=== PATIENT | female | born 1970 | race Caucasian/White ===

== ENCOUNTER 2017-02-24 09:13 | Day surgery (SDC) | payer OTHER ==
[2017-02-24] MEDS ORDERED: ceFAZolin 2 GM/DEXTROSE 100 ML IV ONE (09:33)
[2017-02-24] MEDS ORDERED: LIDOCAINE 1% 2 ML INJ ID PRN (09:42)
[2017-02-24] MEDS ORDERED: LR 1,000 ML IV SCH (10:00)
[2017-02-24] MEDS ORDERED: THROMBIN (BOVINE) 20,000 UNIT SPRAY TP ONE (10:11)
[2017-02-24] MEDS ORDERED: LIDOCAINE 1% 300 MG/30 ML SDV ONE (10:11)
[2017-02-24] MEDS ORDERED: BUPIVACAINE 0.5% 30 ML SDV ONE (10:11)
[2017-02-24] MEDS ORDERED: MINERAL OIL 10 ML VIAL ONE (10:11)
--- NOTE | 2017-02-24 10:14 | PDHPUP ---
History & Physical Update H&P update statement: This history and physical update is based on an assessment of the patient which was completed after admission or registration (within 24 hours), but prior to the surgery/procedure. H&P update: H&P reviewed & patient examined, no change in patient's condition since H&P completed
[2017-02-24] MEDS ORDERED: SCOPOLAMINE HYDROBROMIDE 1 MG/3 DAYS PATCH TD SCH (10:15)
[2017-02-24] MEDS ORDERED: MIDAZOLAM 2 MG/2 ML VIAL IVP ONE (10:15)
--- NOTE | 2017-02-24 10:15 | PDANEPAE ---
ANE History of Present Illness 46 year old female presents for debridement and split thickness skin grafting with possible wound vac placement to right ankle. ANE Past Medical History - Cardiovascular History Hx Hypertension: No Hx Arrhythmias: No Hx Chest Pain: No Hx Coronary Artery / Peripheral Vascular Disease: No Hx CHF / Valvular Disease: No Hx Palpitations: No - Pulmonary History Hx COPD: No Hx Asthma/Reactive Airway Disease: No Hx Recent Upper Respiratory Infection: No Hx Oxygen in Use at Home: No Hx Sleep Apnea: No Sleep Apnea Screening Result - Last Documented: Negative - Neurologic History Hx Cerebrovascular Accident: No Hx Seizures: No Hx Dementia: No - Endocrine History Hx Diabetes: No Hypothyroid: No Hyperthyroid: No Obesity: no - Renal History Hx Renal Disorders: No - Liver History Hx Hepatic Disorders: No - Neurological & Psychiatric Hx Hx Neurological and Psychiatric Disorders: No - Cancer History Hx Cancer: No - Congenital Disorder History Hx Congenital Disorders: No - GI History GERD: no Hx Gastrointestinal Disorders: No - Other Health History Other Health History: NONE - Chronic Pain History Chronic Pain: No - Surgical History Prior Surgeries: JUL 2016 ANKLE FX. ESCAR DEBRIDMENT, BLADDER SLING ANE Review of Systems Review of Systems: - Exercise capacity Exercise capacity: >=4 METS METS (RN): 6 METS ANE Patient History - Allergies Allergies/Adverse Reactions: morphine Allergy (Mild, Verified 02/20/17 17:51) Itching - Home Medications Home medications: home medication list seen and reviewed Home Medications: Keflex 02/20/17 [Last Taken Unknown] - NPO status NPO Status: no food or drink >8 hours NPO Since - Liquids (Date): 02/24/17 NPO Since - Liquids (Time): 07:45 NPO Since - Solids (Date): 02/23/17 NPO Since - Solids (Time): 22:30 - Anes Hx Anes Hx: post operative nausea and vomiting - Smoking Hx Smoking Status: Never smoked Marijuana use: No - Alcohol Use Alcohol Use: Rarely - Family Anes Hx Family Anes Hx: neg - N/A Family Hx Anesthesia Complications: NAUSEA ANE Labs/Vital Signs - Vital Signs Vital Signs: reviewed preoperatively; see RN documention for details Blood Pressure: 124/64 Heart Rate: 53 Respiratory Rate: 16 O2 Sat (%): 98 Height: 172.72 cm Weight: 70.307 kg ANE Physical Exam - Airway Neck exam: FROM Mallampati Score: Class 1 Mouth exam: normal dental/mouth exam - Pulmonary Pulmonary: no respiratory distress - Cardiovascular Cardiovascular: regular rate and rhythym - ASA Status ASA Status: I ANE Anesthesia Plan Anesthesia Plan: general endotracheal anesthesia Total IV Anesthesia: No
[2017-02-24] MEDS ORDERED: PROPOFOL 200 MG/20 ML VIAL ONE (10:20)
[2017-02-24] MEDS ORDERED: LIDOCAINE 2% 5 ML SDV ONE (10:20)
[2017-02-24] MEDS ORDERED: fentaNYL 100 MCG/2 ML INJ ONE ×2 (10:20→11:52)
[2017-02-24] MEDS ORDERED: ROCURONIUM 50 MG/5 ML VIAL ONE (10:20)
[2017-02-24] MEDS ORDERED: DEXAMETHASONE 4 MG/ML VIAL ONE (10:32)
[2017-02-24] MEDS ORDERED: ONDANSETRON 4 MG/2 ML VIAL ONE (10:32)
[2017-02-24] MEDS ORDERED: ONDANSETRON 4 MG/2 ML VIAL IVP PRN (11:02)
[2017-02-24] MEDS ORDERED: LR 500 ML IV PRN (11:02)
[2017-02-24] MEDS ORDERED: NALOXONE HCL 0.4 MG/ML INJ IVP PRN (11:02)
[2017-02-24] MEDS ORDERED: HYDROCODONE/APAP 5/325 TAB PO PRN (11:02)
[2017-02-24] MEDS ORDERED: fentaNYL 100 MCG/2 ML INJ IVP PRN (11:02)
[2017-02-24] MEDS ORDERED: SUGAMMADEX SODIUM 200 MG/2 ML VIAL IVP ONE (11:04)
[2017-02-24] MEDS ORDERED: HYDROCODONE/APAP 5/325 TAB ONE (11:52)
--- NOTE | 2017-02-24 12:26 | POSTOPPROG ---
Post Op Note Date of Operation: 02/24/17 Surgeon: Trinidad Garcia Anesthesiologist: brant Anesthesia: GET(General Endotracheal) Pre-op Diagnosis: chronic wound RLE Post-op Diagnosis: Same Indication: 46 yo with chronic wound RLE Procedure: Debridem skin soft tissue and STSG Findings: 4x2.5 cm Inf/Abcess present in the surg proc area at time of surgery?: No EBL: Minimal Drains: Wound Vac Specimen(s): none
--- NOTE | 2017-02-24 13:03 | GOP ---
[f rep st] OPERATIVE REPORT DATE OF OPERATION: 02/24/2017 SURGEON: Trinidad Garcia MD ANESTHESIA: General. ANESTHESIOLOGIST: Dr. Alexandr Barrera. PREOPERATIVE DIAGNOSIS: Chronic traumatic wound to right lower extremity. POSTOPERATIVE DIAGNOSIS: Chronic traumatic wound to right lower extremity. PROCEDURE PERFORMED: Debridement of skin and soft tissue, including the level of the subcutaneous ti ssue, with split-thickness skin graft and application of wound VAC. FINDINGS: The wound measures 4 x 2.5 cm. There is healthy granulation tissue at the base. SPECIMENS: None. ESTIMATED BLOOD LOSS: 5 cc. INDICATIONS: The patient is a 46-year-old woman who broke her ankle playing soccer. She had a soft tissue defect over the area, and we have been [facility]. The wou nd has been healing, but insurance will not authorize any further applications. She presents for def initive tissue closure. DESCRIPTION OF PROCEDURE: The patient was brought into the operating room, placed supine on the tabl e, and general anesthesia was administered. Her right lower extremity and right thigh were prepped a nd draped in the usual sterile fashion. I debrided the wound with a knife. I then obtained a split- thickness skin graft to a measurement of 1/12,000th inch from the right lateral thigh. I applied thi s to the wound. I stapled into place, followed by Adaptic Touch and a wound VAC. An epinephrine-soa ked sponge was placed on the donor site. Hemostasis achieved with electrocautery. Nevaeh, Mepilex t ransfer, and a Tegaderm were applied. She tolerated the procedure well. /[id number]/MODL
[2017-02-24 13:25] VITALS: TEMP 97.7
[2017-02-24 13:26] VITALS: BP 103/59; PULSE 45; RESP 16; O2SAT 95
--- NOTE | 2017-02-24 14:01 | POSTANESTH ---
Post Anesthetic Evaluation Cardiovascular Status: Normal, Stable, Similar to Pre-Op Cond Respiratory Status: Normal, Stable, Similar to Pre-op Cond. Level of Consciousness/Mental Status: Can Participate in Eval, Alert and Oriented Pain Control: Adequate, Prn Tx Ordered Nausea/Vomiting Control: Adequate, Prn Tx Ordered Complications Possibly Related to Anesthesia: None Noted
[2017-02-27] MEDS ORDERED: PATCH REMOVAL 1 EA PATCH TD SCH (10:15)
== END 2017-02-24 13:18 | disposition home or self-care (01) ==
LOC: FSGY 09:13
PROVIDERS: ATTEND Surgery
PROC: 0HRKX74 Replacement of Right Lower Leg Skin with Autologous Tissue Substitute, Partial Thickness, External Approach (ICD-10-PCS; principal; 2017-02-24 10:45)
PROC: 0JBN0ZZ Excision of Right Lower Leg Subcutaneous Tissue and Fascia, Open Approach (ICD-10-PCS; principal; 2017-02-24 10:45)
DX: L03.115 Cellulitis of right lower limb (principal); L97.311 Non-pressure chronic ulcer of right ankle limited to breakdown of skin
CPT/HCPCS: J0171; J0690; J1100; J2250; J2405; J2704; J3010